=== PATIENT | male | born 1955 | race Caucasian/White ===

== ENCOUNTER 2018-03-29 11:04 | Outpatient (CLI) | payer OTHER ==
[~2018-03-29 11:04] MED LIST: CARDURA8 MG PO; CATAFLAM50 MG PO; PREDNISONE20 MG PO; TOPROL XL50 MG PO
== END 2018-03-29 14:34 | disposition home or self-care (01) ==
LOC: RAD 11:04
DX: M94.0 Chondrocostal junction syndrome [Tietze] (principal)

== ENCOUNTER 2018-07-02 08:33 | Outpatient (CLI) | payer OTHER | END 2018-07-02 08:36 | disposition home or self-care (01) | LOC: RAD 08:33 | DX: I10 Essential (primary) hypertension (principal); J84.10 Pulmonary fibrosis, unspecified ==

== ENCOUNTER 2018-09-25 20:04 | Emergency (ER) | payer OTHER ==
[~2018-09-25] VITALS: Ht 172.7 cm; Wt 77.6 kg
[2018-09-25] MEDS ORDERED: VERAPAMIL ER180 MG (20:32)
[2018-09-26] MEDS ORDERED: DOLOGESIC-DF 51 EACH PO (01:51)
== END 2018-09-26 02:16 ==
LOC: ER
DX: J06.9 Acute upper respiratory infection, unspecified (principal)

== ENCOUNTER 2019-09-28 07:53 | Emergency (ER) | payer OTHER ==
[~2019-09-28] VITALS: Ht 172.7 cm; Wt 74.4 kg
[~2019-09-28 07:53] MED LIST changes: +DOLOGESIC-DF 51 EACH PO; +VERAPAMIL ER180 MG
== END 2019-09-28 21:48 | disposition home or self-care (01) ==
LOC: ER 07:53
DX: K52.89 Other specified noninfective gastroenteritis and colitis (principal); E86.0 Dehydration

== ENCOUNTER 2021-05-25 08:04 | Outpatient (CLI) | payer OTHER | END 2021-05-25 08:08 | disposition home or self-care (01) | LOC: RAD 08:04 | PROVIDERS: ATTEND Internal Medicine Cardiovascular Disease | DX: R10.84 Generalized abdominal pain (principal); I10 Essential (primary) hypertension; J44.9 Chronic obstructive pulmonary disease, unspecified ==

== ENCOUNTER 2021-06-08 08:46 | Outpatient (CLI) | payer OTHER | END 2021-06-08 08:54 | disposition home or self-care (01) | LOC: SONOGRAMA 08:46 | PROVIDERS: ATTEND Internal Medicine Cardiovascular Disease | DX: R10.84 Generalized abdominal pain (principal) ==

== ENCOUNTER 2025-03-05 07:39 | Outpatient (CLI) | payer OTHER | END 2025-03-05 07:48 | disposition home or self-care (01) | LOC: TOM 07:39 | PROVIDERS: ATTEND Internal Medicine Cardiovascular Disease | DX: R07.9 Chest pain, unspecified (principal) ==